=== PATIENT | male | born 1970 | race Caucasian/White ===

== ENCOUNTER 2017-03-07 07:40 | Day surgery (SDC) | payer BC ==
[~2017-03-07] VITALS: Ht 175.3 cm; Wt 79.4 kg
[2017-03-07] VITALS (10 sets, daily range): BP systolic 99–127; BP diastolic 60–77
[2017-03-07] MEDS ORDERED: SIMVASTATIN20 MG ORAL (08:23)
[2017-03-07] MEDS ORDERED: LANSOPRAZOLE30 M2 PO (08:23)
[2017-03-07] MEDS ORDERED: Lidocaine 1% MPF 10mg/ml 5ml ONE (09:30)
[2017-03-07] MEDS ORDERED: Propofol 10mg/ml 20ml IV ONE (09:30)
--- NOTE | 2017-03-07 09:42 | Short Stay Surgery H&P ---
History of Present Illness History of Present Illness Chief Complaint see H&P HPI Willy Rosas is a 47 year old male who was admitted on for Hx Of Colon Cancer Patient History Allergies: Coded Allergies: ASPIRIN (Verified Allergy, Severe, face swelling , 03/07/17) IBUPROFEN (Verified Allergy, Severe, face swelling , 03/07/17) PAST MEDICAL HISTORY: Past Surgeries: Social History: Medication History Scheduled Lansoprazole (Lansoprazole), 30 MG PO DAILY, (Reported) Simvastatin (Zocor), 20 MG ORAL BEDTIME, (Reported) Physical Exam Vital Signs Last Vital Signs Date Time Temp Pulse Resp B/P Pulse Ox O2 Delivery O2 Flow Rate FiO2 03/07/17 08:06 97.7 56 18 127/77 99 Room Air Plan Attestation Are the patient's medical conditions optimized for surgery? MEKA PRESTON Mar 07, 2017 09:42
--- NOTE | 2017-03-07 09:42 | Pre-Procedure Note/Attestation ---
Pre-Procedure Note/Attestation Complete Prior to Procedure Planned Procedure: not applicable Procedure Narrative: EGD/Colon Indications for Procedure Pre-Operative Diagnosis: FH, of colon CA , GERD Attestation I attest that I discussed the nature of the procedure; its benefits; risks and complications; and alternatives (and the risks and benefits of such alternatives ), prior to the procedure, with the patient (or the patient's legal senior customer service representative). I attest that, if there was a reasonable possibility of needing a blood transfusion, the patient (or the patient's legal senior customer service representative) was given the [facility] standardized written summary, pursuant to the Leon Joby Blood Safety Act ([place] Health and Safety Code # 1645, as amended). I attest that I re-evaluated the patient just prior to the surgery and that there has been no change in the patient's H&P, except as documented below: MEKA PRESTON Mar 07, 2017 09:42
--- NOTE | 2017-03-07 10:19 | Immediate Post-Op Evaluation ---
Immediate Post-Op Evalulation Immediate Post-Op Evalulation Procedure: EGD/Colonoscopy Date of Evaluation: Mar 07, 2017 Time of Evaluation: 10:18 IV Fluids: 600 Blood Pressure Systolic: 99 Blood Pressure Diastolic: 63 Pulse Rate: 56 Respiratory Rate: 14 O2 Sat by Pulse Oximetry: 98 Temperature (Fahrenheit): 97.7 Nausea: No Vomiting: No Complications none Patient Status: awake, reacts, patent Hydration Status: adequate Drug: none MICHELLE PEREZ CRNA Mar 07, 2017 10:19
--- NOTE | 2017-03-07 10:20 | Anethesia Preoperative Eval ---
Anesthesia Pre-op PMH/ROS General Date of Evaluation: Mar 07, 2017 Time of Evaluation: 10:20 Anesthesiologist: ivon ASA Score: ASA 2 Mallampati Score Class I : Soft palate, uvula, fauces, pillars visible Class II: Soft palate, uvula, fauces visible Class III: Soft palate, base of uvula visible Class IV: Only hard plate visible Mallampati Classification: Class II Surgeon: william Diagnosis: colon screening Surgical Procedure: EGD/Colonoscopy Anesthesia History: none Family History: no anesthesia problems Allergies: Coded Allergies: ASPIRIN (Verified Allergy, Severe, face swelling , 03/07/17) IBUPROFEN (Verified Allergy, Severe, face swelling , 03/07/17) Medications: see eMAR Past Medical History Cardiovascular: Denies: CAD, HTN, NH, arrhythmia, other, valve dz Pulmonary: Denies: COPD, LORRAINE, asthma, other Gastrointestinal/Genitourinary: Reports: GERD Neurologic/Psychiatric: Denies: CVA, TIA, dementia, depression/anxiety, other Endocrine: Reports: DM, hypothyroidism, other, steroids HEENT: Denies: LUMMI (L), LUMMI (R), cataract (L), cataract (R), glaucoma, other Hematology/Immune: Denies: DVT, anemia, bleeding disorder, other Musculoskeletal/Integumentary: Denies: DDD, DJD, OA, RA, edema, other PMH Narrative: hx of colon ca Anesthesia Pre-op Phys. Exam Physician Exam Last Vital Signs Date Time Temp Pulse Resp B/P Pulse Ox O2 Delivery O2 Flow Rate FiO2 03/07/17 08:06 97.7 56 18 127/77 99 Room Air Constitutional: NAD Neurologic: CN 2-12 intact Cardiovascular: RRR Respiratory: CTA Airway Exam Mallampati Score: Class II MO: full ROM: full Dentures: no lower, no upper Anesthesia Pre-op A/P Studies Pre-op Studies: EKG - sr Risk Assessment & Plan Plan: mac Status Change Before Surgery: No Pre-Antibiotics Drug: none MICHELLE PEREZ CRNA Mar 07, 2017 10:20
--- NOTE | 2017-03-07 10:28 | Endoscopy Procedure Note ---
Endoscopy Procedure Note Procedures Performed: EGD, colonoscopy Specimen: yes Pt Tolerated Procedure Well: Yes Estimated Blood Loss: none Anesthesiologist: see report Anesthesia: MAC Medication Given: see anesthesia record Implant(s) used?: No 50 yrs or older w/o bx or poly: No 10yrs. F/U not recommended: No If not recommended, why?: Above average risk 10 yrs. F/U needed: No 18 years or older w/prev. colo: No <3yrs. since last colonoscopy: No Med reason:<3 yrs.: System Reason:<3 yrs.: Last colonoscopy >= to 3yrs: Yes MEKA PRESTON Mar 07, 2017 10:28
--- NOTE | 2017-03-07 10:30 | Brief Operative Note ---
Immediate Post Operative Note Operative Note Chief Complaint: GERD, FH of colon CA Pre-op Diagnosis: FH, of colon CA , GERD Procedure: EGD/Colon Post-op Diagnosis: normal EGD/ - s/p Bx, normal colon Post-op Diagnosis: same as pre-op Surgeon: jose Anesthesiologist: migel garcia Anesthesia: MAC Specimen: yes Complications: none Condition: stable Estimated Blood Loss: none Drains: none Implant(s) used?: No MEKA PRESTON Mar 07, 2017 10:30
--- NOTE | 2017-03-07 11:19 | 48 Hour Post Anesthesia Eval ---
Post Anesthesia Evaluation Procedure: EGD/Colonoscopy Date of Evaluation: Mar 07, 2017 Time of Evaluation: 11:18 Blood Pressure Systolic: 105 0: 74 Pulse Rate: 54 Respiratory Rate: 14 O2 Sat by Pulse Oximetry: 100 Airway: patent Nausea: No Vomiting: No Hydration Status: adequate Cardiopulmonary Status: stable Mental Status/LOC: patient returned to baseline Post-Anesthesia Complications: none Follow-up care needed: N/A MICHELLE PEREZ CRNA Mar 07, 2017 11:19
--- NOTE | 2017-03-07 16:16 | Operative Note - Dictated ---
DATE OF OPERATION: 03/07/2017 PROCEDURE: Upper gastroendoscopy with biopsy as well as colonoscopy. SURGEON: Nelia Javier M.D. ANESTHESIA: Please see the separate anesthesiologist notes for details. PRE-ENDOSCOPIC DIAGNOSES: 1. History of refractory gastroesophageal reflux symptoms. 2. Family history of colon cancer. POST-ENDOSCOPIC DIAGNOSES: 1. Normal upper endoscopy, status post biopsies of the mid esophagus, distal esophagus, and antrum. 2. Normal colonoscopy including terminal ileum. PROCEDURE: The procedure, its risks, indications, alternatives, and possible complications including, but not limited to, bleeding, infection, perforation, , and anesthesia complications were explained to the patient and informed consent was obtained. The patient was then sedated in the left lateral decubitus position. A diagnostic upper endoscope was introduced through the oropharynx and advanced to the duodenum without difficulty. The endoscope was then gradually withdrawn and the mucosa examined carefully. Examination of the upper gastric mucosa did not reveal any significant abnormalities. Biopsies of the mid esophagus, lower esophagus, and antrum were sent to pathology for review. The endoscope was removed. The rectal exam was done, which was normal and a colonoscope was introduced into the rectum and advanced to the terminal ileum. The colonoscope was then gradually withdrawn and the mucosa examined carefully. Examination of the terminal ileum and mucosa did not reveal any abnormalities. Examination of the colonic mucosa did not reveal any abnormalities. Retroflexed view of the rectum was unremarkable. The colonoscope was removed and the patient was sent to recovery in good condition. COMPLICATIONS: None. RECOMMENDATIONS: 1. Follow up biopsy results. 2. Outpatient followup. Nelia Javier M.D. DR: PHILIP JOB#: [id number] CC: Nelia Javier M.D.; Fax#: [phone]
== END 2017-03-07 11:25 | disposition home or self-care (01) ==
LOC: GAS 07:40
DX: K29.50 Unspecified chronic gastritis without bleeding (principal); Z80.0 Family history of malignant neoplasm of digestive organs; E11.9 Type 2 diabetes mellitus without complications; E03.9 Hypothyroidism, unspecified; Z88.6 Allergy status to analgesic agent
CPT/HCPCS: 43239; 45378; J2704; 94003; 94150